=== PATIENT | male | born 1995 | race Caucasian/White ===

== ENCOUNTER 2019-11-01 01:20 | Emergency (ER) | payer OTHER ==
[~2019-11-01] VITALS: Ht 167.6 cm; Wt 68.0 kg
[2019-11-01 06:27] VITALS: BP 92/62
== END 2019-11-01 06:28 | disposition home or self-care (01) ==
LOC: ER 01:20
DX: F10.10 Alcohol abuse, uncomplicated (principal); Y90.9 Presence of alcohol in blood, level not specified